=== PATIENT | male | born 2000 | race Caucasian/White ===

== ENCOUNTER 2023-07-06 07:51 | Observation (INO) | payer BC, SELFPAY ==
[2023-07-06] VITALS (9 sets, daily range): BP systolic 121–135; BP diastolic 67–88; PULSE 83–97; RESP 18; TEMP 36.6–37.4; O2SAT 96–100; BMI 28.2; BMI 28.4
--- NOTE | 2023-07-06 08:16 | ED.GENADULT ---
HPI - General Adult General Time Seen by Provider: 08:16 Date Seen: 07/06/23 Chief complaint: Cough Stated complaint: swollen lymph nodes Time Seen by Provider: 07/06/23 08:16 Source: patient and RN notes reviewed Mode of arrival: ambulatory Limitations: no limitations History of Present Illness HPI narrative: This 23-year-old male is coming in accompanied by his mom with illness since last Wednesday, today is Wednesday. He had been exposed to both strep and influenza. He has a mild remaining cough, somewhat productive but would not have brought him in. He is having pain from a swollen lymph node in the right side of his neck. It is quite sore. The swelling does extend inside, he is status post tonsillectomy. It is sore inside, these symptoms developed today. He has had congestion and fevers through this illness. Has had nausea, vomiting and diarrhea through this illness as well. 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 Related Data Home Medications Medication Instructions Recorded Confirmed cetirizine 10 mg tablet (24Hour 10 mg PO DAILY 07/06/23 07/06/23 Allergy) omeprazole 20 mg capsule,delayed 20 mg PO DAILY 07/06/23 07/06/23 release Allergies Allergy/AdvReac Type Severity Reaction Status Date / Time No Known Drug Allergies Allergy Verified 07/06/23 09:33 Review of Systems Status of ROS: Reports: 6 or more systems reviewed and unremarkable except as noted in History and below PFSH PFS Social History Smoking Status: Never smoker Do you use any of these nicotine containing products: None Second hand tobacco smoke exposure: No How often do you have a drink containing alcohol: never AUDIT-C Alcohol total score: 0 Non-prescribed substance use: denies use Exam Const: Vital Signs, click to edit/add: Vital Signs - 24 hr 07/06/23 08:02 07/06/23 09:54 Temperature 97.9 F Pulse Rate [Pulse Oximeter] 91 83 Respiratory Rate 18 18 Blood Pressure [Ri ght Upper Arm] 129/88 128/79 Pulse Oximetry 97 100 Oxygen Delivery Me thod Room Air Room Air 23-year-old male that is alert, interactive, no apparent distress. When he removes his masks you can see swelling underneath the right jaw into the right upper anterior neck. He has a palpable swollen area there, probable lymph node but he is quite tender and there is a significant area of swelling, do not appreciate fluctuance but he will not let me palpate this deeply. Face is atraumatic, sclera clear, conjugate gaze. Is able to open his mouth wide, no trismus, oral mucosa is normal, scarring from tonsillectomy, do not appreciate any oral pharyngeal swelling, posterior pharynx looks normal. TMs canals are normal, no evidence of infection. Lungs are clear, good air entry, no wheezing or crackles. CV regular rate and rhythm, no murmur, normal S1-S2, no S3-S4. Documenting provider has reviewed patient's vital signs: yes Course Course ED Course: Nursing staff did collect triple swab and strep on arrival, these are pending. We will be placing an IV, get a soft tissue CT with IV contrast to further identify the care doctor and extent of this right neck swelling/mass. We did discuss is certainly is likely inflamed and infected lymph node. There certainly other things that can develop in the neck and other structures there, palpates more externally rather than internally but need to see if there is cellulitis extending into the deep structures. Will also obtain basic labs. He has no fever right now, vitals are stable, does not look significantly ill, do not feel we need any blood cultures at this time. Reevaluation(s) Time of Reevaluation #1: 09:49 Reevaluation #1: Nursing staff reports patient is having nausea. Will initiate a L of lactated Ringer's and 4 mg IV Zofran. Awaiting CT read of his soft tissue neck. Do see probable enlarged lymphadenopathy on that right side, await Radiology over-read. His potassium is mildly low. The lactated Ringer should help replete some of this. Unfortunately, due to his nausea, do not think that he will tolerate the potassium bicarbonate. This is not low enough that a would initiate IV potassium. Will make sure he goes home with a potassium content of foods list if discharged. Time of Reevaluation #2: 10:20 Reevaluation #2: Have reviewed with patient that he is positive for influenza a, strep, this looks to be infection and sialadenitis, could be viral or bacterial. He does not appear to have an obstructing stone. Reviewed that there is significant swelling, has been recommended that he be observed overnight. They are aware that antibiotics and steroids with dexamethasone are going to be given. We reviewed the hypokalemia, this very likely is from GI losses as well as poor replacement due to his decreased appetite through this. This will be followed, do not think he will tolerate oral replacement yet. There is potassium within the lactated Ringer's. Patient does feel like his throat is a little more swollen, hurts more with swallowing. His voice is still normal, no hoarseness. We reviewed that this is specifically why we will keep him under observation. They are aware if we become concerned about his airway, prophylactic intubation may be considered. Consultations Consultation #1: Have reviewed via phone with our ENT Dr. Shay, he did review scans. He believes that we should observe this patient in the hospital given the level of swelling and soft tissue change. He requests IV Unasyn, IV steroids. Notification to him if patient is worsening. I will review with the hospitalist. Will also add on Monospot as requested by him. Time: 10:09 Consultation #2: Have given sign-out to Dr. Martin whom accepts the patient. He will be seeing him next. Time: 10:46 Vital Signs Vital signs: Initial Vital Signs Temperature 97.9 F 07/06/23 08:02 Temperature Source Temporal Artery Scan 07/06/23 08:02 Pulse Rate 91 07/06/23 08:02 Respiratory Rate 18 07/06/23 08:02 Blood Pressure 129/88 07/06/23 08:02 Blood Pressure Mean 101 07/06/23 08:02 Blood Pressure Position Sitting 07/06/23 08:02 Pulse Oximetry 97 07/06/23 08:02 Oxygen Delivery Method Room Air 07/06/23 08:02 Vital Signs Temperature 97.9 F 07/06/23 08:02 Pulse Rate 91 07/06/23 08:02 Respiratory Rate 18 07/06/23 08:02 Blood Pressure 129/88 07/06/23 08:02 Pulse Oximetry 97 07/06/23 08:02 Oxygen Delivery Method Room Air 07/06/23 08:02 Temperature 97.9 F 07/06/23 08:02 Pulse Rate 83 07/06/23 09:54 Respiratory Rate 18 07/06/23 09:54 Blood Pressure 128/79 07/06/23 09:54 Pulse Oximetry 100 03/05/24 09:54 Oxygen Delivery Method Room Air 07/06/23 09:54 Medications Administered Medications: Generic Name Dose Route Start Last Admin Trade Name Romeo PRN Reason Stop Dose Admin Lactated Ringer's 1,000 mls @ 1,000 mls/hr 07/06/23 09:48 07/06/23 09:54 Lactated Ringers 1000 Ml IV 07/06/23 10:47 1,000 mls/hr .Q1H ONE Administration Discontinued Medications Generic Name Dose Route Start Last Admin Trade Name Romeo PRN Reason Stop Dose Admin Dexamethasone 10 mg 07/06/23 10:12 07/06/23 10:29 Dexamethasone 10 Mg/Ml Inj IVP 07/06/23 10:13 10 mg ONCE ONE Administration Ampicillin Sodium/Sulbactam 100 mls @ 200 mls/hr 07/06/23 10:12 07/06/23 10:29 Sodium 3 gm/ Sodium Chloride IVPB 07/06/23 10:13 200 mls/hr ONCE ONE Administration Ondansetron HCl 4 mg 07/06/23 09:48 07/06/23 09:54 Ondansetron 2 Mg/Ml Inj IVP 07/06/23 09:49 4 mg ONCE ONE Administration Medical Decision Making Lab Data Lab results reviewed: Yes I reviewed the patient's lab results Labs: Lab Results 07/06/23 07/06/23 07/06/23 Range/Units 08:10 08:35 10:25 WBC 7.19 (4.50-11.00) K/uL RBC 5.31 (4.30-5.90) m/uL Hgb 15.9 (13.5-17.5) gm/dL Hct 45.2 (37.0-53.0) % MCV 85 (80-100) fL MCH 30 (26-34) pg MCHC 35 (32-36) gm/dL RDW Coeff of Corinne 11.6 (11.5-15.5) % Plt Count 264 (140-440) K/uL Neut % (Auto) 60.0 (42.0-72.0) % Lymph % (Auto) 29.3 (20-44) % [place] % (Auto) 7.4 (0.0-11.0) % Eos % (Auto) 2.8 (0.0-7.0) % Baso % (Auto) 0.4 (0.0-3.0) % Neut # (Auto) 4.31 (1.7-7.0) K/uL Lymph # (Auto) 2.11 (0.90-2.90) K/uL [place] # (Auto) 0.50 (0.00-0.90) K/UL Eos # (Auto) 0.20 (0.00-0.50) K/uL Baso # (Auto) 0.03 (0.00-0.30) K/uL Abs Immat Gran (auto) 0.01 (0.00-0.30) K/uL Imm/Tot Granulo (auto) 0.1 % Sodium 140 (135-149) mmol/L Potassium 3.0 L (3.6-5.1) mmol/L Chloride 99 (96-114) mmol/L Carbon Dioxide 29 (20-32) mmol/L Anion Gap 12 (7-15) mEq/L BUN 16 (5-24) mg/dL Creatinine 0.9 (0.5-1.5) mg/dL Estimated Creat Clear 144.26 Estimated GFR 123 ml/min Glucose 105 (60-115) mg/dL Calcium 9.8 (8.4-10.6) mg/dL C-Reactive Protein 0.8 (0.5-1.0) mg/dL SARS-CoV-2 (PCR) Negative SARS-CoV-2 (Negative) Monoscreen Negative (Negative) Influenza Type A (PCR) POSITIVE PCR FLU A A (Negative) Influenza Type B (PCR) Negative PCR FLU B (Negative) RSV (PCR) Negative PCR RSV (Negative) Group A Strep DNA DETECTED A (Not Detectd) Lab Acknowledgement Test Added Imaging Data CT- Other: Attestation: I have reviewed the pertinent imaging results. Radiologist's impression: Patient: KENRICK VAN Facility:?[facility] Patient ID:?[id number] Site Patient ID:?[id number]. Site :?[id number] Study:?CT ST Neck W/ 105CC ISOVUE 370-07/06/2023 9:37:37 AM Ordering Physician:SALVATORE Final Report: Indication: Right-sided swelling, history of strep and influenza positivity, cough Technique: Volumetric multidetector CT images of the cervical soft tissues were obtained after the administration of low osmolar intravenous contrast. 105 cc Isovue 370 low osmolar intravenous contrast Comparison: None available. Findings: The partially visualized brain parenchyma is normal in attenuation without evidence of abnormal enhancement. The orbits and their contents are within normal limits. There is minimal chronic mucosal thickening with minimal air-fluid levels in the paranasal sinuses. The mastoid air cells are clear. There is mild nasopharyngeal mucosal edema and hyperemia. There is minimal mucosal hyperemia of the oropharynx. There is moderate hypopharyngeal edema; however, evaluation of the base of tongue is mildly limited due to motion artifact. There is severe edema and inflammatory change of the right submandibular gland without obvious obstructive calculus or ductal prominence. There is moderate edema appreciated within the right floor of mouth and submandibular space. Minimal fluid tracks superiorly into the parapharyngeal space. The vocal folds are nonthickened with symmetrical appearance. The thyroid gland is normal in attenuation. There are moderately enlarged, reactive right greater than left cervical lymph nodes. The jugular veins are patent. The carotid arteries demonstrate no significant atherosclerotic narrowing. The lung apices are clear. The cervical vertebral body heights are grossly maintained with mild straightening of the normal cervical lordosis without evidence of significant spondylolisthesis or displaced fracture. Impression: Marked inflammatory change of the right submandibular gland with moderate right floor of mouth and submandibular inflammation with associated reactive lymph nodes which may represent developing infectious or inflammatory sialoadenitis. There is minimal fluid tracking into the parapharyngeal space without obvious rim enhancement. No evidence of obstructive sialolith. No evidence of definite rim enhancing fluid. Please note that all CT scans at this facility use dose modulation, iterative reconstruction, and/or weight-based dosing when appropriate to reduce radiation dose to as low as reasonably achievable. Dictated by Anibal Calvillo MD @ 07/06/2023 10:00:27 AM (Electronic Signature) Discharge Plan Discharge Clinical Impression: Influenza A, Sialadenitis, Acute streptococcal pharyngitis, Acute hypokalemia Patient Disposition: Admitted As Observation
--- NOTE | 2023-07-06 08:23 | CT_ITS ---
Final Report Patient: KENRICK VAN Facility:?[facility] Patient ID:?[id number] Site Patient ID:?[id number]. Site :?[id number] Study:?CT ST Neck W/ 105CC ISOVUE 370-07/06/2023 9:37:37 AM Ordering Physician:SALVATORE Final Report: Indication: Right-sided swelling, history of strep and influenza positivity, cough Technique: Volumetric multidetector CT images of the cervical soft tissues were obtained after the administration of low osmolar intravenous contrast. 105 cc Isovue 370 low osmolar intravenous contrast Comparison: None available. Findings: The partially visualized brain parenchyma is normal in attenuation without evidence of abnormal enhancement. The orbits and their contents are within normal limits. There is minimal chronic mucosal thickening with minimal air-fluid levels in the paranasal sinuses. The mastoid air cells are clear. There is mild nasopharyngeal mucosal edema and hyperemia. There is minimal mucosal hyperemia of the oropharynx. There is moderate hypopharyngeal edema; however, evaluation of the base of tongue is mildly limited due to motion artifact. There is severe edema and inflammatory change of the right submandibular gland without obvious obstructive calculus or ductal prominence. There is moderate edema appreciated within the right floor of mouth and submandibular space. Minimal fluid tracks superiorly into the parapharyngeal space. The vocal folds are nonthickened with symmetrical appearance. The thyroid gland is normal in attenuation. There are moderately enlarged, reactive right greater than left cervical lymph nodes. The jugular veins are patent. The carotid arteries demonstrate no significant atherosclerotic narrowing. The lung apices are clear. The cervical vertebral body heights are grossly maintained with mild straightening of the normal cervical lordosis without evidence of significant spondylolisthesis or displaced fracture. Impression: Marked inflammatory change of the right submandibular gland with moderate right floor of mouth and submandibular inflammation with associated reactive lymph nodes which may represent developing infectious or inflammatory sialoadenitis. There is minimal fluid tracking into the parapharyngeal space without obvious rim enhancement. No evidence of obstructive sialolith. No evidence of definite rim enhancing fluid. Please note that all CT scans at this facility use dose modulation, iterative reconstruction, and/or weight-based dosing when appropriate to reduce radiation dose to as low as reasonably achievable. Dictated by Anibal Calvillo MD @ 07/06/2023 10:00:27 AM (Electronic Signature)
[2023-07-06 08:45] LABS: Basophils Absolute Auto 0.03 K/uL (0.00-0.30); Basophils Percent Auto 0.4 % (0.0-3.0); Eosinophils Percent Auto 2.8 % (0.0-7.0); Hematocrit 45.2 % (37.0-53.0); Hemoglobin* 15.9 gm/dL (13.5-17.5); Immature Granulocytes Abs Auto 0.01 K/uL (0.00-0.30); Immature Granulocytes Pct Auto 0.1 %; Lymphocytes Absolute Auto 2.11 K/uL (0.90-2.90); Lymphocytes Percent Auto 29.3 % (20-44); Mean Corpuscular HGB Conc 35 gm/dL (32-36); Mean Corpuscular Hemoglobin 30 pg (26-34); Mean Corpuscular Volume 85 fL (80-100); Monocytes Percent Auto 7.4 % (0.0-11.0); Neutrophils Absolute Auto 4.31 K/uL (1.7-7.0); Platelet Count* 264 K/uL (140-440); RDW Coefficient of Variation % 11.6 % (11.5-15.5); Red Blood Count 5.31 m/uL (4.30-5.90); White Blood Count* 7.19 K/uL (4.50-11.00)
[2023-07-06 08:46] LABS: Strep A DNA Probe* DETECTED (Not Detectd)
[2023-07-06 08:58] LABS: Slide Review Reflex No
[2023-07-06 09:00] LABS: Chloride* 99 mmol/L (96-114); Sodium* 140 mmol/L (135-149)
[2023-07-06 09:00] LABS: PCR FLU A POSITIVE PCR FLU A (Negative); PCR FLU B Negative PCR FLU B (Negative); PCR RSV Negative PCR RSV (Negative); SARS PCR* Negative SARS-CoV-2 (Negative)
[2023-07-06 09:03] LABS: Creatinine* 0.9 mg/dL (0.5-1.5); Est. Creatinine Clearance* 144.26; Estimated Glomerular Filt Rate 123 ml/min
[2023-07-06 09:04] LABS: Anion Gap 12 mEq/L (7-15); Blood Urea Nitrogen* 16 mg/dL (5-24); Calcium* 9.8 mg/dL (8.4-10.6); Carbon Dioxide* 29 mmol/L (20-32); Glucose* 105 mg/dL (60-115)
[2023-07-06 09:07] LABS: C Reactive Protein* 0.8 mg/dL (0.5-1.0)
[2023-07-06] MEDS: LACTATED RINGERS 1000 ML 1,000 ML IV (09:54)
[2023-07-06] MEDS: ONDANSETRON 2 MG/ML inj 4 MG IVP (09:54)
[2023-07-06] MEDS: AMPICILLIN/SULBACTAM 3 GM in 0.9 % SODIUM CHLORIDE Mini-bag 100 ML IVPB ×3 (10:29→22:37)
[2023-07-06] MEDS: dexAMETHasone 10 MG/ML inj IVP (10:29)
[2023-07-06 10:37] LABS: Mono Screen* Negative (Negative)
[2023-07-06] MEDS: MORPHINE 2 MG/ML inj IVP (11:13)
--- NOTE | 2023-07-06 11:31 | ED.NURSE ---
Pt to M/S via wheelchair - accompanied by mom. All belongings remain w/ patient.
[2023-07-06] MEDS: MAG HYDROX/ALUMINUM HYD/SIMETH 30 ML ORAL.SUSP PO (12:20)
[2023-07-06] MEDS: POTASSIUM BICARB 25 MEQ EFFERVESCENT TAB PO ×3 (14:46→18:48)
--- NOTE | 2023-07-06 15:42 | PC.NURSE ---
Pt alert and oriented. Pt had no complaints of pain. Pt arrived to floor from ED at 1130. Pt is independent in room. Pt?s mother at bedside. Pt is pleasant and cooperative. Pt has swelling on right side of jaw/neck. Pt has complaints of heartburn; see EMAR for intervention. VSS. Pt states since being sick he has 4-6 loose stools daily; before being sick Pt stated he does have BM?s multiple times a day.
--- NOTE | 2023-07-06 16:53 | PM.IMHP1 ---
Hospitalist- H&P: HPI History of Present Illness Date Seen: 07/06/23 Chief complaint: swollen lymph nodes Narrative: Ortiz Van is a 23 year old male previously healthy who is admitted through the emergency department for 6 day history of illness. Six days ago he 1st noted he had some sore throat. This got quite a bit worse fairly quickly. He had congestion and fever as well. Initially he had some vomiting and diarrhea as well. His symptoms have continued over the subsequent several days. His fever has resolved in the last few days. Today however he got prominent swelling under the right side of his jaw and because that came to the emergency room for evaluation. There he was found to have inflammation and suspected infection of the right submandibular gland. He has not had a return of his fever. He has not any trouble swallowing. He does not have any trouble breathing. No hoarseness. He can open his mouth and eat and chew without difficulty. Initially had some upset stomach but that is largely resolved. His appetite is not quite back to normal but he is able to eat. Diarrhea has resolved. In the emergency department he had a positive test for influenza a and strep. Nine days ago his brother with seen in the emergency department with similar symptoms of illness and also had a positive test for influenza and strep. Eight days ago his father had onset of illness and had a positive influenza a test. He did take 1 dose of Tamiflu when he became ill based on his brother and father having influenza. He felt the Tamiflu cause too much GI upset and so stop taking. Prior to this patient reports that he was generally feeling well. Review of Systems Narrative: He reports no other recent illness or injury. [facility] Medical History (Updated 07/06/23 @ 17:09 by Cedric Martin MD) Small bowel obstruction ?K56.609 - Unspecified intestinal obstruction, unspecified as to partial versus complete obstruction (ICD-10) Intestinal malrotation ?Q43.3 - Congenital malformations of intestinal fixation (ICD-10) Surgical History (Updated 07/06/23 @ 16:59 by Cedric Martin MD) S/P small bowel resection ?Z90.49 - Acquired absence of other specified parts of digestive tract (ICD-10) Family History (Updated 07/06/23 @ 17:03 by Cedric Martin MD) Father Diabetes Cardiovascular disease Social History (Updated 07/06/23 @ 17:04 by Cedric Martin MD) Narrative: 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 He had plans to travel to meet his girlfriend in [place] today. Plans have been postponed was current illness. He uses marijuana daily at bedtime to help with sleep and anxiety. He rarely drinks alcohol. He does not use tobacco. What is your current living situation?: I presently have a place to live Problems where you live: no known problems Problems where you live details: NA In the past 12 months, utilities in danger of being shut off: no In past 12 months, lack of transportation kept you from medical appts, meetings, work, or getting things needed for daily living: no In the past 12 mos, have been you worried that your food would run out before you had money to buy more?: never true In the past 12 mos, the food you bought just didn't last and you didn't have money to buy more?: never true Highest level of school completed/degree received: high school graduate Smoking Status: Never smoker Do you use any of these nicotine containing products: None Second hand tobacco smoke exposure: No How often do you have a drink containing alcohol: never AUDIT-C Alcohol total score: 0 Non-prescribed substance use: marijuana (any form) Non-prescribed substance use details: At bedtime to help with sleep Caffeine: No How often does anyone, including family, friends and others, physically hurt you: never How often does anyone, including family, friends and others, insult or talk down to you: never How often does anyone, including family, friends and others, threaten you with harm: never How often does anyone, including family, friends and others, scream or curse at you: never service: No Meds Home Medications and Allergies Home Medications Medication Instructions Recorded Confirmed Type cetirizine 10 mg tablet (24Hour 10 mg PO DAILY 07/06/23 07/06/23 History Allergy) omeprazole 20 mg capsule,delayed 20 mg PO DAILY 07/06/23 07/06/23 History release Allergies Allergy/AdvReac Type Severity Reaction Status Date / Time No Known Drug Allergies Allergy Verified 07/06/23 09:33 Exam Narrative: Exam Narrative: He is alert and appears in no distress. Eyes normal. Oropharynx with mild erythema and swelling under the tongue near the midline on the right. Palpation here does not show any focal mass or palpable salivary stone. It is not tender. Neck is notable for observed swelling underneath the right side of the mandible this extends back to the angle the mandible and is quite prominent. Does not surrounding erythema and palpation there is not significantly tender does have some adenopathy in the anterior cervical chain on the right side of his neck. There is no stridor. His voice is not hoarse. He swallows without difficulty. He opens his mouth without difficulty or discomfort. He moves his neck well without discomfort. Respirations are clear to auscultation. Cardiovascular: S1, S2, regular rate and rhythm. Abdomen is soft without tenderness or mass. No organomegaly. Extremities without edema. Well-perfused extremities. Intact pulses. No rash Const: Vital Signs, click to edit/add: Vital Signs - 24 hr 07/06/23 08:02 07/06/23 09:54 07/06/23 10:00 Temperature 97.9 F Pulse Rate Pulse Rate [Pulse Oximeter] 91 83 Pulse Rate [Right Radial] Respiratory Rate 18 18 Blood Pressure [Le ft Arm] Blood Pressure [Le ft Radial Artery] Blood Pressure [Ri ght Upper Arm] 129/88 128/79 Pulse Oximetry 97 100 99 Oxygen Delivery Me thod Room Air Room Air 07/06/23 11:20 07/06/23 11:21 07/06/23 11:30 Temperature 98.0 F Pulse Rate 91 Pulse Rate [Pulse Oximeter] 92 Pulse Rate [Right Radial] Respiratory Rate 18 Blood Pressure [Le ft Arm] 135/87 Blood Pressure [Le ft Radial Artery] 135/87 Blood Pressure [Ri ght Upper Arm] 121/87 Pulse Oximetry 96 98 Oxygen Delivery Me thod Room Air 07/06/23 11:30 07/06/23 15:30 07/06/23 15:30 Temperature 98.1 F Pulse Rate Pulse Rate [Pulse Oximeter] 97 97 Pulse Rate [Right Radial] 89 89 Respiratory Rate 18 18 18 Blood Pressure [Le ft Arm] 128/67 Blood Pressure [Le ft Radial Artery] Blood Pressure [Ri ght Upper Arm] Pulse Oximetry 98 98 Oxygen Delivery Me thod Room Air Room Air Documenting provider has reviewed patient's vital signs: yes Hospitalist - H&P: Result Labs Labs: Short CBC 07/06/23 Range/Units 08:35 WBC 7.19 (4.50-11.00) K/uL Hgb 15.9 (13.5-17.5) gm/dL Hct 45.2 (37.0-53.0) % Plt Count 264 (140-440) K/uL [facility] 07/06/23 08:35 Sodium 140 Potassium 3.0 L Chloride 99 Carbon Dioxide 29 BUN 16 Creatinine 0.9 Glucose [address]- Other: Radiologist's impression: Patient: ORTIZ VAN Facility:?[facility] Patient ID:?[id number] Site Patient ID:?[id number]. Site :?[id number] Study:?CT ST Neck W/ 105CC ISOVUE 370-07/06/2023 9:37:37 AM Ordering Physician:SALVATORE Final Report: Indication: Right-sided swelling, history of strep and influenza positivity, cough Technique: Volumetric multidetector CT images of the cervical soft tissues were obtained after the administration of low osmolar intravenous contrast. 105 cc Isovue 370 low osmolar intravenous contrast Comparison: None available. Findings: The partially visualized brain parenchyma is normal in attenuation without evidence of abnormal enhancement. The orbits and their contents are within normal limits. There is minimal chronic mucosal thickening with minimal air-fluid levels in the paranasal sinuses. The mastoid air cells are clear. There is mild nasopharyngeal mucosal edema and hyperemia. There is minimal mucosal hyperemia of the oropharynx. There is moderate hypopharyngeal edema; however, evaluation of the base of tongue is mildly limited due to motion artifact. There is severe edema and inflammatory change of the right submandibular gland without obvious obstructive calculus or ductal prominence. There is moderate edema appreciated within the right floor of mouth and submandibular space. Minimal fluid tracks superiorly into the parapharyngeal space. The vocal folds are nonthickened with symmetrical appearance. The thyroid gland is normal in attenuation. There are moderately enlarged, reactive right greater than left cervical lymph nodes. The jugular veins are patent. The carotid arteries demonstrate no significant atherosclerotic narrowing. The lung apices are clear. The cervical vertebral body heights are grossly maintained with mild straightening of the normal cervical lordosis without evidence of significant spondylolisthesis or displaced fracture. Impression: Marked inflammatory change of the right submandibular gland with moderate right floor of mouth and submandibular inflammation with associated reactive lymph nodes which may represent developing infectious or inflammatory sialoadenitis. There is minimal fluid tracking into the parapharyngeal space without obvious rim enhancement. No evidence of obstructive sialolith. No evidence of definite rim enhancing fluid. Assessment and Plan Assessment and plan (1) Sialadenitis: Problem comment: Involves right submandibular gland. With recent illness suspect infection. Treat with Unasyn and follow clinically. Has already received dexamethasone in the emergency department. Currently no difficulties with swallowing or airway. Status: Acute (2) Influenza A: Problem comment: Likely the cause of his recent illness. Status: Acute (3) Acute streptococcal pharyngitis: Problem comment: Recent illness clinically suggests influenza more than strep throat. May be a strep carrier? Status: Acute (4) Acute hypokalemia: Problem comment: Due to recent diarrhea and poor oral intake. Replace and recheck Status: Acute Plan Patient is admitted to the hospital for IV antibiotics and monitoring of infection and airway. Total Time Spent Total Time Spent: Total time spent today is 60 minutes, 40 minutes in coordination care and discussing with patient, mother and other providers ongoing management of current illness
--- NOTE | 2023-07-06 19:06 | PC.NURSE ---
end of shift 3-7. pt has been very pleasant. Pt alert and oriented. pt said his back is sore. pt is going to try sitting in the chair to see if that helps. Pt is independent in room. Pt has swelling on right side of jaw/neck. sL is patent. he is taking in po meds. he is taking in clears.
[2023-07-06] MEDS: SODIUM CHLORIDE 0.9 % (FLUSH) 10 ML SYRINGE 5 ML IVF (20:37)
[2023-07-06] MEDS: OMEPRAZOLE 20 MG CAPSULE DR PO (20:37)
[2023-07-06] MEDS: ACETAMINOPHEN 500 MG TABLET 1000 MG PO (23:56)
[2023-07-07 03:00] VITALS: BP 129/90; PULSE 80; RESP 18; TEMP 36.2; O2SAT 98
[2023-07-07] MEDS: AMPICILLIN/SULBACTAM 3 GM in 0.9 % SODIUM CHLORIDE Mini-bag 100 ML IVPB (04:31)
--- NOTE | 2023-07-07 04:53 | PC.NURSE ---
Shift note: Pt has been complaining of back pain. Warm compresses applied and Tylenol given which appeared effective. No fever, N/V and diarrhea recorded. Pt is pleasant and cooperate with care and treatment.
[2023-07-07 06:34] LABS: Basophils Percent Auto 0.2 % (0.0-3.0); Hematocrit 40.9 % (37.0-53.0); Hemoglobin* 14.2 gm/dL (13.5-17.5); Lymphocytes Percent Auto 23.9 % (20-44); Mean Corpuscular HGB Conc 35 gm/dL (32-36); Mean Corpuscular Hemoglobin 30 pg (26-34); Mean Corpuscular Volume 86 fL (80-100); Monocytes Percent Auto 9.9 % (0.0-11.0); Platelet Count* 268 K/uL (140-440); RDW Coefficient of Variation % 11.4 % (11.5-15.5); Red Blood Count 4.77 m/uL (4.30-5.90); White Blood Count* 4.26 K/uL (4.50-11.00)
[2023-07-07 07:03] LABS: Chloride* 100 mmol/L (96-114)
[2023-07-07 07:04] LABS: Potassium* 3.8 mmol/L (3.6-5.1); Sodium* 139 mmol/L (135-149)
[2023-07-07 07:06] LABS: Creatinine* 0.8 mg/dL (0.5-1.5); Estimated Glomerular Filt Rate 128 ml/min
[2023-07-07 07:07] LABS: Anion Gap 12 mEq/L (7-15); Blood Urea Nitrogen* 13 mg/dL (5-24); Calcium* 9.6 mg/dL (8.4-10.6); Carbon Dioxide* 27 mmol/L (20-32); Glucose* 124 mg/dL (60-115)
[2023-07-07 07:10] LABS: C Reactive Protein* 1.9 mg/dL (0.5-1.0)
[2023-07-07 07:32] LABS: Slide Review Reflex No
[2023-07-07 08:00] VITALS: BP 116/73; PULSE 73; PULSE 80; RESP 16; TEMP 36.7; O2SAT 99
--- NOTE | 2023-07-07 08:04 | P.DS_ITS ---
DS: Providers Provider Date Seen: 07/07/23 Date of admission: 07/06/23 11:32 Primary care physician: Not a Local Provider Admitting Clinician: Cedric Martin MD Attending Physician on discharge: Cedric Mratin MD Date of Discharge: 07/07/23 DS: Diagnosis Discharge Diagnosis (1) Sialadenitis: Status: Acute Problem details: Involves right submandibular gland. With recent illness suspect infection. Treat with Unasyn and follow clinically. Has already received dexamethasone in the emergency department. Currently no difficulties with swallowing or airway. (2) Influenza A: Status: Acute Problem details: Likely the cause of his recent illness. (3) Acute streptococcal pharyngitis: Status: Acute Problem details: Recent illness clinically suggests influenza more than strep throat. May be a strep carrier? (4) Acute hypokalemia: Status: Acute Problem details: Due to recent diarrhea and poor oral intake. Replace and recheck DS: Summary Hospital Course Hospital Course: Ortiz Van is a 23 year old male previously healthy who is admitted through the emergency department for 6 day history of illness. Six days ago he 1st noted he had some sore throat. This got quite a bit worse fairly quickly. He had congestion and fever as well. Initially he had some vomiting and diarrhea as well. His symptoms have continued over the subsequent several days. His fever has resolved in the last few days. Today however he got prominent swelling under the right side of his jaw and because that came to the emergency room for evaluation. There he was found to have inflammation and suspected in fection of the right submandibular gland. He has not had a return of his fever. He has not any trouble swallowing. He does not have any trouble breathing. No hoarseness. He can open his mouth and eat and chew without difficulty. Initially had some upset stomach but that is largely resolved. His appetite is not quite back to normal but he is able to eat. Diarrhea has resolved. In the emergency department he had a positive test for influenza a and strep. Nine days ago his brother with seen in the emergency department with similar symptoms of illness and also had a positive test for influenza and strep. Eight days ago his father had onset of illness and had a positive influenza a test. He did take 1 dose of Tamiflu when he became ill based on his brother and father having influenza. He felt the Tamiflu cause too much GI upset and so stop taking. Prior to this patient reports that he was generally feeling well. In the hospital he was treated with Unasyn. He reported overnight feeling much better. He had no fever. Time Spent with Patient Time attestation: Total time spent providing and/or coordinating discharge services: Time spent: Less than 30 minutes Exam Narrative: Exam Narrative: He is alert and appears in no distress swelling under his right mandible is moderately improved. There is no tenderness there. He does have some persisting lymphadenopathy in the anterior cervical chain which is nontender. Oropharynx shows improvement in the erythema and swelling in the right sublingual space. Const: Vital Signs, click to edit/add: Vital Signs - 24 hr 07/06/23 09:54 07/06/23 10:00 07/06/23 11:20 Temperature Pulse Rate 91 Pulse Rate [Pulse Oximeter] 83 Pulse Rate [Right Radial] Respiratory Rate 18 Blood Pressure [Le ft Arm] Blood Pressure [Le ft Radial Artery] Blood Pressure [Ri ght Upper Arm] 128/79 Pulse Oximetry 100 99 96 Oxygen Delivery Nm thod Room Air 07/06/23 11:21 07/06/23 11:30 07/06/23 11:30 Temperature 98.0 F Pulse Rate Pulse Rate [Pulse Oximeter] 92 Pulse Rate [Right Radial] Respiratory Rate 18 18 Blood Pressure [Le ft Arm] 135/87 Blood Pressure [Le ft Radial Artery] 135/87 Blood Pressure [Ri ght Upper Arm] 121/87 Pulse Oximetry 98 98 [facility]xygen [facility] Room Air 07/06/23 15:30 07/06/23 15:30 07/06/23 19:00 Temperature 98.1 F 99.4 F Pulse Rate Pulse Rate [Pulse Oximeter] 97 97 96 Pulse Rate [Right Radial] 89 89 Respiratory Rate 18 18 18 Blood Pressure [Le ft Arm] 128/67 124/84 Blood Pressure [Le ft Radial Artery] Blood Pressure [Ri ght Upper Arm] Pulse Oximetry 98 98 Oxygen Delivery Nm thod Room Air Room Air 07/06/23 23:00 07/07/23 03:00 Temperature 99.1 F 97.2 F L Pulse Rate Pulse Rate [Pulse Oximeter] 93 80 Pulse Rate [Right Radial] Respiratory Rate 18 18 Blood Pressure [Le ft Arm] 126/73 129/90 H Blood Pressure [Le ft Radial Artery] Blood Pressure [Ri ght Upper Arm] Pulse Oximetry 97 98 Oxygen Delivery Me thod Room Air Room Air Documenting provider has reviewed patient's vital signs: yes DS: Data Data Completed and Pending Labs on day of discharge: Labs from last 24 hours 07/07/23 07/06/23 07/06/23 05:47 10:25 08:35 WBC 4.26 L 7.19 RBC 4.77 5.31 Hgb 14.2 15.9 Hct 40.9 45.2 MCV 86 85 MCH 30 30 MCHC 35 35 RDW Coeff of Corinne 11.4 L 11.6 Plt Count 268 264 Neut % (Auto) 66.0 60.0 Lymph % (Auto) 23.9 29.3 Banks % (Auto) 9.9 7.4 Eos % (Auto) 0.0 2.8 Baso % (Auto) 0.2 0.4 Neut # (Auto) 2.80 4.31 Lymph # (Auto) 1.00 2.11 Banks # (Auto) 0.40 0.50 Eos # (Auto) 0.00 0.20 Baso # (Auto) 0.00 0.03 Abs Immat Gran (auto) 0.00 0.01 Imm/Tot Granulo (auto) 0.0 0.1 Sodium 139 140 Potassium 3.8 3.0 L Chloride 100 99 Carbon Dioxide 27 29 Anion Gap 12 12 BUN 13 16 Creatinine 0.8 0.9 Estimated Creat Clear 162.30 144.26 Estimated GFR 128 123 Glucose 124 H 105 Calcium 9.6 9.8 C-Reactive Protein 1.9 H 0.8 SARS-CoV-2 (PCR) Monoscreen Negative Influenza Type A (PCR) Influenza Type B (PCR) RSV (PCR) Group A Strep DNA Lab Acknowledgement Test Added 07/06/23 08:10 WBC RBC Hgb Hct MCV MCH MCHC RDW Coeff of Corinne Plt Count Neut % (Auto) Lymph % (Auto) Banks % (Auto) Eos % (Auto) Baso % (Auto) Neut # (Auto) Lymph # (Auto) Banks # (Auto) Eos # (Auto) Baso # (Auto) Abs Immat Gran (auto) Imm/Tot Granulo (auto) Sodium Potassium Chloride Carbon Dioxide Anion Gap BUN Creatinine Estimated Creat Clear Estimated GFR Glucose Calcium C-Reactive Protein SARS-CoV-2 (PCR) Negative SARS-CoV-2 Monoscreen Influenza Type A (PCR) POSITIVE PCR FLU A A Influenza Type B (PCR) Negative PCR FLU B RSV (PCR) Negative PCR RSV Group A Strep DNA DETECTED A Lab Acknowledgement Imaging CT- Other: Radiologist's impression: Patient: ORTIZ VAN Facility:?[facility] Patient ID:?[id number] Site Patient ID:?[id number]. Site :?[id number] Study:?CT ST Neck W/ 105CC ISOVUE 370-07/06/2023 9:37:37 AM Ordering Physician:SALVATORE Final Report: Indication: Right-sided swelling, history of strep and influenza positivity, cough Technique: Volumetric multidetector CT images of the cervical soft tissues were obtained after the administration of low osmolar intravenous contrast. 105 cc Isovue 370 low osmolar intravenous contrast Comparison: None available. Findings: The partially visualized brain parenchyma is normal in attenuation without evidence of abnormal enhancement. The orbits and their contents are within normal limits. There is minimal chronic mucosal thickening with minimal air-fluid levels in the paranasal sinuses. The mastoid air cells are clear. There is mild nasopharyngeal mucosal edema and hyperemia. There is minimal mucosal hyperemia of the oropharynx. There is moderate hypopharyngeal edema; however, evaluation of the base of tongue is mildly limited due to motion artifact. There is severe edema and inflammatory change of the right submandibular gland without obvious obstructive calculus or ductal prominence. There is moderate edema appreciated within the right floor of mouth and submandibular space. Minimal fluid tracks superiorly into the parapharyngeal space. The vocal folds are nonthickened with symmetrical appearance. The thyroid gland is normal in attenuation. There are moderately enlarged, reactive right greater than left cervical lymph nodes. The jugular veins are patent. The carotid arteries demonstrate no significant atherosclerotic narrowing. The lung apices are clear. The cervical vertebral body heights are grossly maintained with mild straightening of the normal cervical lordosis without evidence of significant spondylolisthesis or displaced fracture. Impression: Marked inflammatory change of the right submandibular gland with moderate right floor of mouth and submandibular inflammation with associated reactive lymph nodes which may represent developing infectious or inflammatory sialoadenitis. There is minimal fluid tracking into the parapharyngeal space without obvious rim enhancement. No evidence of obstructive sialolith. No evidence of definite rim enhancing fluid. Discharge Plan Discharge Disposition: Home, Self-Care Date of Admission: 07/06/23 11:32 Attending Provider on Discharge: Cedric Martin Primary Care Provider: Provider,Not a Local Condition: Improved Anticipated Discharge Date/Time: 07/07/23 09:00 Discharge Medications: New amoxicillin-pot clavulanate 875-125 mg tablet 1 tab PO BID Qty: 14 0RF Continued cetirizine [24Hour Allergy] 10 mg tablet 10 mg PO DAILY omeprazole 20 mg capsule,delayed release(DR/EC) 20 mg PO DAILY Discharge Orders: Discharge Order (Routine); Ordered 07/07/23 Ordered By: Cedric Martin Additional Instructions: Return to the emergency department if recurrent fevers, trouble breathing or swallowing or increased pain and swelling in your neck Activity Level: Activity as Tolerated Discharge Diet: Regular Follow Up Appointments: Provider,Not a Local [Primary Care Provider] - Forms: [employer] Info Instructions
[2023-07-07] MEDS: OMEPRAZOLE 20 MG CAPSULE DR PO (08:54)
--- NOTE | 2023-07-07 10:05 | PC.NURSE ---
Discharge. pt is still very pleasant. Pt alert and oriented x4 . pt said his back is sore, but it is better today. Pt is independent in room. Pt has swelling on right side of jaw/neck. sL is patent it was d/c intact. . he is taking in po meds. he is eating, drinking and voiding. went over discharge packet with pt and mom. pt went over and signed personal belongings sheet. he left with all belongings and paperwork. he walked out with his mom
== END 2023-07-07 10:10 | disposition home or self-care (01) ==
LOC: ED 10:23 → MEDSURG 11:32
PROVIDERS: Admitting Provider Family Medicine; Emergency Provider Family Medicine; Visit Provider Family Medicine
DX: K11.20 Sialoadenitis, unspecified (principal); J10.1 Influenza due to other identified influenza virus with other respiratory manifestations; J02.0 Streptococcal pharyngitis; E87.6 Hypokalemia; R05.9 Cough, unspecified; R11.0 Nausea; R59.0 Localized enlarged lymph nodes; K21.9 Gastro-esophageal reflux disease without esophagitis; Z90.89 Acquired absence of other organs; Z90.49 Acquired absence of other specified parts of digestive tract; F12.90 Cannabis use, unspecified, uncomplicated
CPT/HCPCS: 36415; 70491; 80048; 85025; 86140; 86308; 87631; 87651; 94761; 96361; 96365; 96366; 96375; 99284; 99285; A9270; G0378; J0295; J1100; J2270; J2405; J7120; Q9967

== ENCOUNTER 2023-10-21 20:53 | Emergency (ER) | payer BC, SELFPAY ==
[2023-10-21 21:02] VITALS: BP 137/97; PULSE 88; RESP 16; TEMP 36.4; O2SAT 98; BMI 26.5
[2023-10-21 21:43] LABS: Strep A DNA Probe* NOT DETECTED (Not Detectd)
[2023-10-21 22:02] LABS: PCR FLU A Negative PCR FLU A (Negative); PCR FLU B Negative PCR FLU B (Negative); PCR RSV Negative PCR RSV (Negative); SARS PCR* POSITIVE SARS-CoV-2 (Negative)
--- NOTE | 2023-10-21 22:58 | ED_ITS ---
HPI - General Adult General Date Seen: 10/21/23 Chief complaint: Sore Throat Stated complaint: Sore red throat-sinus infection 6 days ago Time Seen by Provider: 10/21/23 20:54 Related Data Home Medications ?Medication ?Instructions ?Recorded ?Confirmed cetirizine 10 mg tablet (24Hour 10 mg PO DAILY 07/06/23 07/06/23 Allergy) omeprazole 20 mg capsule,delayed 20 mg PO DAILY 07/06/23 07/06/23 release Previous Rx's ?Medication ?Instructions ?Recorded amoxicillin 875 mg-potassium 1 tab PO BID #14 tabs 07/07/23 clavulanate 125 mg tablet Allergies Allergy/AdvReac Type Severity Reaction Status Date / Time No Known Drug Allergies Allergy Verified 07/06/23 09:33 [facility] Medical History (Updated 10/21/23 @ 22:55 by Igor Smith MD) Small bowel obstruction ?K56.609 - Unspecified intestinal obstruction, unspecified as to partial versus complete obstruction (ICD-10) Intestinal malrotation ?Q43.3 - Congenital malformations of intestinal fixation (ICD-10) Surgical History S/P small bowel resection ?Z90.49 - Acquired absence of other specified parts of digestive tract (ICD- 10) Family History (Updated 07/06/23 @ 17:03 by Cedric Martin MD) Father Diabetes Cardiovascular disease Social History (Updated 07/06/23 @ 17:04 by Cedric Martin MD) Narrative: 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 He had plans to travel to meet his girlfriend in [facility] today. Plans have been postponed was current illness. He uses marijuana daily at bedtime to help with sleep and anxiety. He rarely drinks alcohol. He does not use tobacco. What is your current living situation?: I presently have a place to live Problems where you live: no known problems Problems where you live details: NA In the past 12 months, utilities in danger of being shut off: no In past 12 months, lack of transportation kept you from medical appts, meetings, work, or getting things needed for daily living: no In the past 12 mos, have been you worried that your food would run out before you had money to buy more?: never true In the past 12 mos, the food you bought just didn't last and you didn't have money to buy more?: never true Highest level of school completed/degree received: high school graduate Smoking Status: Never smoker Do you use any of these nicotine containing products: None Second hand tobacco smoke exposure: No How often do you have a drink containing alcohol: never AUDIT-C Alcohol total score: 0 Non-prescribed substance use: marijuana (any form) Non-prescribed substance use details: At bedtime to help with sleep Caffeine: No How often does anyone, including family, friends and others, physically hurt you : never How often does anyone, including family, friends and others, insult or talk down to you: never How often does anyone, including family, friends and others, threaten you with harm: never How often does anyone, including family, friends and others, scream or curse at you: never service: No Exam Const: Vital Signs, click to edit/add: Vital Signs - 24 hr 10/21/23 21:02 Temperature 97.5 F L Pulse Rate [Pulse Oximeter] 88 Respiratory Rate 16 Blood Pressure [Ri ght Upper Arm] 137/97 H Pulse Oximetry 98 Oxygen Delivery Me thod Room Air Course Vital Signs Vital signs: Initial Vital Signs Respiratory Effort Normal, Spontaneous, Non-Labored 10/21/23 21:00 Respiratory Depth Normal 10/21/23 21:00 Respiratory Pattern Normal 10/21/23 21:00 Vital Signs Temperature 97.5 F L 10/21/23 21:02 Pulse Rate 88 10/21/23 21:02 Respiratory Rate 16 10/21/23 21:02 Blood Pressure 137/97 H 10/21/23 21:02 Pulse Oximetry 98 10/21/23 21:02 Oxygen Delivery Method Room Air 10/21/23 21:02 Temperature 97.5 F L 10/21/23 21:02 Pulse Rate 88 10/21/23 21:02 Respiratory Rate 16 10/21/23 21:02 Blood Pressure 137/97 H 10/21/23 21:02 Pulse Oximetry 98 10/21/23 21:02 Oxygen Delivery Method Room Air 10/21/23 21:02 Medical Decision Making MDM Narrative Medical decision making narrative: This patient presents for evaluation of sore throat, dry mouth, cough, body aches, fatigue. He has actually had symptoms ongoing for several weeks but got worse a week or 2 ago. He was already seen in urgent care and put on Augmentin for possible sinus infection or bronchitis. 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 Cough may actually be getting slightly better. He has ongoing fatigue, myalgias. Exam does show evidence for erythema of the soft palate and peritonsillar pillars. Tonsils are surgically absent. No evidence for any peritonsillar abscess, retropharyngeal abscess, uvulitis. Airway widely patent. No evidence for any allergic reaction to the Augmentin. Overall, symptoms are most consistent with an upper respiratory tract infection. Viral testing is positive for coronavirus. Negative for influenza, RSV. Strep testing is negative.. There is no signs at this point of serious bacterial infection such as OM, RPA, epiglottitis, SENIOR INFORMATION SECURITY CONSULTANT, strep pharyngitis, pneumonia, sinusitis, meningitis, bacteremia, serious bacterial infection. Given clear lungs, fever curve, no hypoxia and no respiratory distress I do not feel a CXR is indicated at this point as the probability of bacterial pneumonia is very unlikely. He is having some diarrhea, which is likely a side effect of his recently prescribed Augmentin. I would recommend that he discontinue that since Augmentin would not have any efficacy against coronavirus. Discussed with the patient and his mother that it would be impossible with 100% certainty to rule out a superimposed bacterial infection. However given the side effects from the antibiotic it seems reasonable to stop. He is doing well with oral intake and has no signs of dehydration. Close followup with primary care physician is indicated. Return to ED for fever > 103, worsening trouble breathing, trouble swallowing, protracted vomiting, confusion, or other worsening. Lab Data Labs: Lab Results 10/21/23 Range/Units 21:00 SARS-CoV-2 (PCR) POSITIVE SARS-CoV-2 A (Negative) Influenza Type A (PCR) Negative PCR FLU A (Negative) Influenza Type B (PCR) Negative PCR FLU B (Negative) RSV (PCR) Negative PCR RSV (Negative) Group A Strep DNA NOT DETECTED (Not Detectd) Discharge Plan Discharge Clinical Impression: COVID-19 Patient Disposition: Home, Self-Care Condition: Stable Instructions: COVID-19 (Coronavirus Disease 2019) (ED) Additional Instructions: As we discussed, please come back to the ER right away or see your doctor right away if you have worsening symptoms; such as worsening sore throat, trouble swallowing, trouble breathing, or high fever.. You can use ibuprofen (600 mg per dose every 6 hours if needed) or Tylenol (1000 mg per dose every 6 hours if needed) to treat fever or sore throat. Drink plenty of fluids S to stay hydrated. Eat soft or soothing foods to help soothe your throat. Prescriptions: No Action cetirizine [24Hour Allergy] 10 mg tablet 10 mg PO DAILY omeprazole 20 mg capsule,delayed release(DR/EC) 20 mg PO DAILY amoxicillin-pot clavulanate 875-125 mg tablet 1 tab PO BID Qty: 14 0RF Follow Up/Referrals: Provider,Not a Local [Primary Care Provider] - Stand Alone Forms: ViewReple Info Instructions
[2023-10-21 22:59] VITALS: BP 125/74; PULSE 80; RESP 16; TEMP 36.7; O2SAT 98
== END 2023-10-21 23:01 | disposition home or self-care (01) ==
LOC: ED 22:58
PROVIDERS: Emergency Provider Emergency Medicine
DX: U07.1 COVID-19 (principal)
CPT/HCPCS: 87631; 87651; 99282; 99283